=== PATIENT | female | born 1955 | race Caucasian/White ===

== ENCOUNTER 2022-06-18 12:18 | Outpatient (CLI) | payer MEDICARE, OTHER, SELFPAY | END 2022-06-18 12:19 | disposition home or self-care (01) | PROVIDERS: PCP Family Medicine; Visit Provider Specialist | DX: C44.311 Basal cell carcinoma of skin of nose (principal) | CPT/HCPCS: 88305 ==

== ENCOUNTER 2024-06-01 11:27 | Outpatient (CLI) | payer MEDICARE, OTHER, SELFPAY ==
--- OUTSIDE RECORDS SUMMARY | 2024-06-01 12:57 | XMS_ITS ---
Author Organization Unknown Address [address] [place] [phone] Phone Care Team Providers Care Racing Manager Name Role Phone VERNA Villarreal Attending Unavailable Immunization Immunization Date Status Additional Notes Code Code System Tdap 07/09/2011 Completed [address] CHEST CA SCREEN - Complet ed: 03/13/2023 15:21 LOINC: EXAM DESCRIPTION: CT CHEST CA SCREEN REASON FOR STUDY: Screening CT of the chest in a current smoker with a 51 pack year smoking history. Additional history: None. TECHNIQUE: Low dose CT scan of the chest was performed without intravenous contrast using helical scanning technique. The exam extends from the lung apices through the lung bases. Automatic exposure control was used as a dose optimization technique. NOTE: This study was performed for the specific purposes of lung cancer screening and is not an alternative to diagnostic chest CT. RADIATION DOSE: CT dose index volume (CTDIvol) = 3.87 mGy COMPARISON: CT chest 11/30/2021 FINDINGS: SMOKING RELATED LUNG DISEASE: Mild pulmonary emphysema. LUNG NODULES: Stable 3 mm nodule along the left major fissure (174). No suspicious lung nodules are identified. CORONARY ARTERY CALCIFICATION: Minimal coronary artery calcifications. OTHER: No focal consolidation, pneumothorax, or pleural effusion. The central airways are clear. No mediastinal mass. No enlarged thoracic lymph nodes. Redemonstrated calcified mediastinal nodes. The heart is normal in size. No pericardial effusion. Mild atherosclerotic calcifications of the thoracic aorta. No thoracic aortic aneurysm. No acute fractures or suspicious osseous lesions. Severe dextroscoliosis of the thoracic spine. The visualized upper abdomen is normal. IMPRESSION: No suspicious lung nodules. Lung-RADS category 1: Negative. Recommendation: Low dose Screening CT of chest in 12 months. THIS IS AN ELECTRONICALLY VERIFIED FINAL REPORT 03/14/2023 11:40 AM - Electronically signed by Rashaad Musa M.D. KR: DENNYS Report ID: [id number] Reading Location: [id number] Social History Type Status Start Date End Date Code Code Syst em Smoking History Current every day smoker [id number] SNOMED CT Sex Female Hospital Discharge Instructions Should you have any questions prior to discharge, please contact a member of your healthcare team. If you have left the hospital and have any questions, please contact your primary care physician. Reason For Referral No Data Found Plan of Treatment CT Chest CA Screen (56185) 05/19/2024 Encounters Encounter Diagnosis Start Date Code Code Sys tem Screening for malignant neop lasm of respiratory tract 03/13/2023 [id number] SNOMED-CT Personal Care Team Section Performer Name Performer Role Active Date Inactive Da te Imaging Narrative Notes
--- OUTSIDE RECORDS SUMMARY | 2024-06-01 12:57 | XMS_ITS | Encounter Summary ---
Author Organization [facility] Address Formerly [facility] [place] [address] Care Team Providers Care Estimator Project Manager Name Role Phone Jesse Martin MD Primary Care Provider [phone] Encounter Details Date Type Department Care Team (Late st Contact Info) Description 08/08/2018 Abstract [facility] CONVERSION [address] [place] [address] , Generic Conversion, Social History Tobacco Use Types Packs/Day Years Used Date Smoking Tobacco: Never Assessed Comments Unknown Sex and Gender Information Value Date Recorded Sex Assigned at Not on file 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
--- OUTSIDE RECORDS SUMMARY | 2024-06-01 12:57 | XMS_ITS | Clinical Summary ---
Author Organization [facility] Address [facility] [place] [address] Care Team Providers Care Investigation Officer Name Role Phone Jesse Martin MD Primary Care Provider Allergies Active Allergy Reactions Criticality Noted Date Comments Penicillins Hives 06/14/2020 Medications irbesartan-hydr ochlorothiazide 150-12.5 MG Tab Take 1 tablet by mouth daily. 05/30/2020 Active pravastatin 40 MG tablet Take 40 mg by mouth nightly at bedtime. 04/06/2020 Active aspirin EC 81 MG tablet Take 81 mg by mouth daily. Active famotidine 20 MG tablet Take 20 mg by mouth every other day. 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 Gender Identity Not on file Sexual Orientation Not on file Last Filed Vital Signs Vital Sign Reading Time Taken Comments Blood Pressure - - Pulse - - Temperature - - Respiratory Rate - - Oxygen Saturation - - Inhaled Oxygen Concentration - - Weight 104.3 kg (230 lb) 07/20/2020 9:03 AM CDT Height 170.2 cm (5' 7 ) 07/20/2020 9:03 AM CDT Body Mass Index 36.02 07/20/2020 9:03 AM CDT Plan of Treatment Health Maintenance Due Date Last Done Comments Colorectal Cancer Screening Colonoscopy (10 Years) 1955 Pneumococcal Vaccine: 65+ Ye ars (1 of 2 - PCV) 01/15/1960 Hepatitis C 01/15/1972 DTaP, Tdap and Td Vaccines ( 1 - Tdap) 1973 Mammogram Screening 1994 Zoster Vaccines (1 of 2) 01/15/2004 Annual Medicare Wellness Visit 2019 Dexa Scan (General) 2019 COVID-19 Vaccine (1 - 2023-2 5 season) 2023 RSV Immunization or 60+ Years (1 - 1-dose 75+ series) 2029 Meningococcal B Vaccine Aged Out No l onger eligible based on patient's age to complete this topic Meningococcal Vaccine Aged Out No jayda timi eligible based on patient's age to complete this topic RSV Immunizations Under 20 Months Aged Out No longer eligible based on patient's age to complete this topic Insurance MEDICARE [facility] Care Teams Investigation Officer Relationship Specialty Start Date End Date Jesse Martin MD PCP - General FAMILY PRACTICE 06/14/20
--- OUTSIDE RECORDS SUMMARY | 2024-06-01 12:58 | XMS_ITS ---
Author Organization Unknown Address [address] [place] [address] [phone] Phone Care Team Providers Care Political Science Professor Name Role Phone VERNA Villarreal Attending Unavailable Immunization Immunization Date Status Additional Notes Code Code System Tdap 07/09/2011 Completed [address] CHEST CA SCREEN - Complet ed: 05/19/2024 15:12 LOINC: \TM00\12PI\DRAo\BM09\ \MRHo\ [address] [address] ---------NAME--------- NUMBER SEX AGE ADMIT DISC. XRAY# F/C TYPE ANDREA SLATER [id number] F 69 05/19/24 05/19/24 [id number] MB O/P DATE OF : 1955 M/R# [id number] PH#: [phone] RM \MRHx\ LOCATION: TRANSCRIBED: 05/19/24 19:17 CT CHEST CA SCREEN [id number] COMPLETED:05/19/24 15:12 [facility] [id number] {REASON-CT CHEST CA SCREEN: CURRENT SMOKER PHYSICIAN: VERNA BR R A D I O L O G Y R E P O R T CT Chest without intravenous contrast INDICATION: CURRENT SMOKER TECHNIQUE: Multidetector spiral CT of the chest was performed from the lung apices to the upper abdomen. Axial, coronal and sagittal multiplanar reformats were performed. Radiation dose : Chest: CTDI volume is 3 mGy. Dose-length product is 143 mGy*cm The dose indicators for CT are the volume computed tomography (CT) dose index (CTDIvol) and the dose length product (DLP), and are measured in units of mGy and mGy-cm, respectively. These indicators are not patient dose, but values generated from the CT scanner acquisition factors. The report includes radiation exposure data for exposures received during this examination. Comparison: None Findings: Lower neck: Normal thyroid. Lungs: Calcified granuloma right lung apex. Atelectasis and scarring in the lung bases. Heart/Vascular Structures: Normal heart size. No pericardial effusion. Lymph Nodes: Calcified mediastinal lymph nodes. Pleura: No pleural effusion or significant pneumothorax. Musculoskeletal: Marked dextroscoliosis with associated multilevel degenerative disease. Soft tissues: Normal. Upper abdomen: Limited portions of the upper abdomen are unremarkable. IMPRESSION: 1. Evidence of prior granulomatous disease. No suspicious pulmonary nodule or consolidation. Lung rads 2-benign. Radiation optimization: All CT scans at this facility use at least one of these dose optimization techniques: Automated exposure control mA and/or kV adjustment per patient size (includes targeted exams where dose is matched to clinical indication) or iterative reconstruction. HS:Y ONARY FUNCTION TECHNICIAN \ITLo\ \UNDo\ \UNDx\ \ITLx\ Reviewed and Electronically Signed by: Chao Espinoza MD Signed Date: 05/19/24 19:17 Social History Type Status Start Date End Date Code Code Syst em Smoking History Current every day smoker [id number] SNOMED CT Sex Female Hospital Discharge Instructions Should you have any questions prior to discharge, please contact a member of your healthcare team. If you have left the hospital and have any questions, please contact your primary care physician. Reason For Referral No Data Found Plan of Treatment CT Chest CA Screen (22093) 05/19/2024 Encounters Encounter Diagnosis Start Date Code Code Sys tem Encounter for screening for malignant neoplasm of respiratory organs 05/19/2024 SNOMED-CT Personal Care Team Section Performer Name Performer Role Active Date Inactive Da te Imaging Narrative Notes [facility] 05/19/2024 19:[address] [address] ---------NAME--------- NUMBER SEX AGE ADMIT DISC. XRAY# F/C TYPE ANDREA SLATER [id number] F 69 05/19/24 05/19/24 [id number] MB O/P DATE OF : 1955 M/R# [id number] #: [id number] LOCATION: TRANSCRIBED: 05/19/24 19:17 CT CHEST CA SCREEN [id number] COMPLETED:05/19/24 15:12 [place] [id number] {REASON-CT CHEST CA SCREEN: CURRENT SMOKER PHYSICIAN: VERNA BR RADIOLOGY REPORT CT Chest without intravenous contrast INDICATION: CURRENT SMOKER TECHNIQUE: Multidetector spiral CT of the chest was performed from the lung apices to the upper abdomen. Axial, coronal and sagittal multiplanar reformats were performed. Radiation dose : Chest: CTDI volume is 3 mGy. Dose-length product is 143 mGy*cm The dose indicators for CT are the volume computed tomography (CT) dose index (CTDIvol) and the dose length product (DLP), and are measured in units of mGy and mGy-cm, respectively. These indicators are not patient dose, but values generated from the CT scanner acquisition factors. The report includes radiation exposure data for exposures received during this examination. Comparison: None Findings: Lower neck: Normal thyroid. Lungs: Calcified granuloma right lung apex. Atelectasis and scarring in the lung bases. Heart/Vascular Structures: Normal heart size. No pericardial effusion. Lymph Nodes: Calcified mediastinal lymph nodes. Pleura: No pleural effusion or significant pneumothorax. Musculoskeletal: Marked dextroscoliosis with associated multilevel degenerative disease. Soft tissues: Normal. Upper abdomen: Limited portions of the upper abdomen are unremarkable. IMPRESSION: 1. Evidence of prior granulomatous disease. No suspicious pulmonary nodule or consolidation. Lung rads 2-benign. Radiation optimization: All CT scans at this facility use at least one of these dose optimization techniques: Automated exposure control mA and/or kV adjustment per patient size (includes targeted exams where dose is matched to clinical indication) or iterative reconstruction. HS:Y ONARY FUNCTION TECHNICIAN Reviewed and Electronically Signed by: Chao Espinoza MD Signed Date: 05/19/24 19:17
== END 2024-06-01 11:28 | disposition home or self-care (01) ==
LOC: CHSLAB 11:34
PROVIDERS: PCP Family Medicine; Visit Provider Specialist
DX: C44.619 Basal cell carcinoma of skin of left upper limb, including shoulder (principal); C44.519 Basal cell carcinoma of skin of other part of trunk
CPT/HCPCS: 88305